=== PATIENT | female | born 1955 | race Native Hawaiian/Other Pacific Islander ===

== ENCOUNTER 2020-05-20 14:03 | Outpatient (CLI) | payer BC | END 2020-05-20 20:58 | disposition home or self-care (01) | LOC: RAD 14:03 | PROVIDERS: ATTEND Physician Assistant | DX: M25.551 Pain in right hip (principal) ==

== ENCOUNTER 2020-06-01 15:06 | Outpatient (CLI) | payer BC | END 2020-06-01 20:00 | disposition home or self-care (01) | LOC: RAD 15:06 | PROVIDERS: ATTEND Physician Assistant | DX: M54.5 Low back pain (principal) ==